=== PATIENT | male | born 2000 | race Hispanic/Latino ===

== ENCOUNTER 2024-06-13 15:21 | Day surgery (SDC) | payer SELFPAY ==
[2024-06-13] MEDS ORDERED: MORPHINE 4 MG/ML SYR ONE (16:01)
[2024-06-13] MEDS ORDERED: KETOROLAC 30 MG/ML INJ ONE (16:01)
[2024-06-13] MEDS ORDERED: NA CHLORIDE 0.9% 1,000 ML ONE (16:01)
[2024-06-13] MEDS ORDERED: ONDANSETRON 4 MG/2 ML VIAL ONE (16:01)
[2024-06-13] MEDS ORDERED: CEFAZOLIN SODIUM 2 GM/VIAL ONE (16:02)
[2024-06-13] MEDS ORDERED: NA CHLORIDE 0.9% 100 ML ONE (16:02)
[2024-06-13 16:23] LABS: Absolute Basophils 0.1 K/uL (0-0.5); Absolute Eosinophils 0.4 K/uL (0-0.5); Absolute Lymphocytes (CBC) 1.5 K/uL (0.7-4.9); Absolute Monocytes 1.1 K/uL (0.1-1.3); Absolute Neutrophil 7.9 K/uL (1.8-8.0); Basophils % 0.9 % (0-1.3); Eosinophils % 3.5 % (0-4.4); Hematocrit 43.1 % (39.6-49.0); Hemoglobin 14.7 g/dL (13.6-17.9); MCH 30.6 pg (27.0-35.0); Monocytes % 9.8 % (3.3-12.3); Neutrophils % 71.8 % (41.7-73.7); Nucleated Red Blood Cells % 0.1 % (0-0); Platelets 290 thou/uL (152-406); RBC Red Blood Cell Count 4.79 M/uL (4.33-5.43); Red Cell Distribution Width 13.1 % (12.1-15.2)
--- NOTE | 2024-06-13 16:37 | RAD REPORT ---
Exam:Foot Left 3 View CLINICAL HISTORY: Left foot pain FINDINGS: No fracture or dislocation seen Laceration soft tissue adjacent to the first metatarsal head Bony density adjacent to the base of the first distal phalanx probably an ununited ossification mary morrison
[2024-06-13 16:40] LABS: Albumin/Globulin Ratio 1.1 (1.1-1.8); Anion Gap 7.2 mEq/L (5.0-15.0); Bilirubin Total 0.6 mg/dL (0.2-1.0); Globulin 3.6 g/dL (2.3-3.5); Potassium 4.2 mEq/L (3.5-5.1); Protein, Total 7.6 g/dL (6.4-8.2)
--- NOTE | 2024-06-13 16:58 | ER ---
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 Ebola Screen: No symptoms or risks identified at this time. Complicating Factors: There are no complicating factors for this patient. Initial Sepsis Screen: Does the patient meet any 2 criteria? No. Patient's initial sepsis screen is negative. Does the patient have a suspected source of infection? No. Patient's initial sepsis screen is negative. Risk Assessment: Do you want to hurt yourself or someone else? Patient reports no desire to harm self or others. Onset of symptoms was June 13, 2024 at 15:00. 15:40 Method Of Arrival: Wheelchair bp 15:40 Acuity: MARZENA 3 bp Triage Assessment: 15:41 General: Appears in no apparent distress. uncomfortable, Behavior is cooperative, bp appropriate for age, anxious. Pain: Complains of pain in left foot. EENT: No deficits noted. Neuro: No deficits noted. Cardiovascular: No deficits noted. Respiratory: No deficits noted. GI: No signs and/or symptoms were reported involving the gastrointestinal system. : No signs and/or symptoms were reported regarding the genitourinary system. Derm: No deficits noted. Musculoskeletal: No deficits noted. Injury Description: Laceration sustained to left first toe is jagged, 0.5 to 2.5 cm long, bleeding moderately. Historical: - Allergies: 15:41 No Known Drug Allergies; bp - Home Meds: 15:41 None [Active]; bp - PMHx: 15:41 None; bp - Immunization history:: Adult Immunizations up to date, Last tetanus immunization: < 5 years ago. - Infectious Disease History:: Denies. - Social history:: Smoking status: Patient denies any tobacco usage or history of. Screenin:39 [facility] ED Fall Risk Assessment (Adult) History of falling in the last 3 months, ph including since admission No falls in past 3 months (0 pts) Confusion or Disorientation No (0 pts) Intoxicated or Sedated No (0 pts) Impaired Gait Yes (1 pt) Mobility Assist Device Used No (0 pt) Altered Elimination No (0 pt) Score/Fall Risk Level 0 - 2 = Low Risk Oriented to surroundings, Maintained a safe environment, Hourly rounding (assess needs \T\ fall precautionary measures) done. Abuse screen: Denies threats or abuse. Denies injuries from another. Nutritional screening: No deficits noted. Tuberculosis screening: No symptoms or risk factors identified. Assessment: 16:40 General: Appears in no apparent distress. well groomed, Behavior is calm, cooperative. ph Pain: Complains of pain in right first toe. Neuro: Level of Consciousness is awake, alert, obeys commands, Oriented to person, place, time, situation. Cardiovascular: Capillary refill < 3 seconds in bilateral fingers. Derm: Skin is pink, warm \T\ dry. Musculoskeletal: Circulation, motion, and sensation intact. Range of motion: intact in all extremities. Injury Description: Laceration sustained to right first toe. 17:36 Reassessment: Patient appears in no apparent distress at this time. Patient and/or ph family updated on plan of care and expected duration. Pain level reassessed. Patient is alert, oriented x 3, equal unlabored respirations, skin warm/dry/pink. Pt taken to OR. Vital Signs: 15:40 Weight 77.11 kg; Height 5 ft. 6 in. ; bp 15:40 BP 146 / 92; Pulse 85; Resp 18; Temp 97; Pulse Ox 100% on R/A; ph 16:45 BP 131 / 79; Pulse 75; Resp 18; Pulse Ox 100% on R/A; ph 15:40 Body Mass Index 27.44 (77.11 kg, 167.64 cm) bp ED Course: 15:23 Patient arrived in ED. ra3 15:41 Triage completed. bp 15:41 Arm band placed on. bp 15:49 Rome Garcia MD is Attending Physician. rehan 16:00 Bel Kirk RN is Primary Nurse. ph 16:10 Missed attempt(s): 20 gauge in right antecubital area. Bleeding controlled, band aid ph applied, catheter tip intact. 16:15 Initial lab(s) drawn, by me, sent to lab. Inserted saline lock: 22 gauge in left ph antecubital area, using aseptic technique. Blood collected. Flushed with 10 mL NS. 16:29 Foot Left 3 View XRAY In Process Unspecified. EDMS 16:40 Patient has correct armband on for positive identification. Bed in low position. Call ph light in reach. Side rails up X 1. Pulse ox on. NIBP on. Door closed. Noise minimized. Warm blanket given. Verbal reassurance given. 16:42 Wound care: to laceration located on right first toe was irrigated with NS and betadine ph dressed with 4X4s, Kerlix, wet to dry. 16:56 Amilcar Martinez MD is Hospitalizing Provider. [facility] 17:38 No provider procedures requiring assistance completed. Patient admitted, IV remains in ph place. Administered Medications: 16:30 Drug: NS 0.9% IV 1000 ml IV at 1000 ml once; to be given as a bolus over 60 minutes ph Route: IV; Rate: 1000 ml; Site: left antecubital; 17:37 Follow up: Response: No adverse reaction; IV Status: Completed infusion ph 16:30 Drug: morphine IVP or IV 4 mg IVP once over 4 mins Route: IVP; Infused Over: 4 mins; ph Site: left antecubital; 17:38 Follow up: Response: No adverse reaction; Pain is decreased ph 16:30 Drug: Ondansetron IVP 4 mg IVP once; over 2 minutes Route: IVP; Site: left antecubital; ph 17:38 Follow up: Response: No adverse reaction ph 16:30 Drug: Ketorolac IVP 30 mg IVP once Route: IVP; Site: left antecubital; ph 17:38 Follow up: Response: No adverse reaction; Pain is decreased ph 16:36 Drug: ceFAZolin IVPB 2 grams IVPB once over 30 mins; (mix in 100 mL NS) Route: IVPB; ph Infused Over: 30 mins; Site: left antecubital; 17:06 Follow up: Response: No adverse reaction; IV Status: Completed infusion ph 17:25 Drug: Boostrix Tdap IM 0.5 ml IM once; as a single dose Route: IM; Site: left deltoid; ph 17:37 Follow up: Response: No adverse reaction ph Medication: 17:38 Vaccine Information Statement (VIS) provided today. Questions and/or concerns ph addressed. VIS edition date: January 2021. Outcome: 16:57 Decision to Hospitalize by Provider. rehan 17:38 Admitted to OR accompanied by nurse, family with patient, via stretcher, with chart, ph 17:38 Condition: good 17:38 Instructed on the need for admit, 17:39 Patient left the ED. ph Signatures: Dispatcher [employer] EDMS Rome Garcia MD MD cha Hall, Patricia, RN RN Clifford Garnett, LANCE RN Ashley Villareal ra3
--- NOTE | 2024-06-13 16:58 | EDPHYS ---
Physician Documentation [facility] Name: Chris Mar Jr Age: 23 yrs Sex: Male : 2000 Arrival Date: 06/13/2024 Time: 15:21 Bed 19 Private MD: ED Physician Rome Garcia HPI: 06/13 16:53 This 23 yrs old Male presents to ER via Wheelchair with complaints of rehan Laceration To Foot. 16:53 The patient has a laceration related to: doing yard work, CHAINSAW. The laceration(s) rehan is(are) located on the instep of left foot. Onset: The symptoms/episode began/occurred just prior to arrival. Associated signs and symptoms: The patient has no apparent associated signs or symptoms. The patient has not experienced similar symptoms in the past. Historical: - Allergies: 15:41 No Known Drug Allergies; bp - Home Meds: 15:41 None [Active]; bp - PMHx: 15:41 None; bp - Immunization history:: Adult Immunizations up to date, Last tetanus immunization: < 5 years ago. - Infectious Disease History:: Denies. - Social history:: Smoking status: Patient denies any tobacco usage or history of. ROS: 16:53 Constitutional: Negative for fever, chills, and weight loss, Eyes: Negative for injury, rehan pain, redness, and discharge, ENT: Negative for injury, pain, and discharge, Neck: Negative for injury, pain, and swelling, Cardiovascular: Negative for chest pain, palpitations, and edema, Respiratory: Negative for shortness of breath, cough, wheezing, and pleuritic chest pain, Abdomen/GI: Negative for abdominal pain, nausea, vomiting, diarrhea, and constipation, Back: Negative for injury and pain, : Negative for injury, bleeding, discharge, and swelling, Neuro: Negative for headache, weakness, numbness, tingling, and seizure, Psych: Negative for depression, anxiety, suicide ideation, homicidal ideation, and hallucinations, Allergy/Immunology: Negative for hives, rash, and allergies, Endocrine: Negative for neck swelling, polydipsia, polyuria, polyphagia, and marked weight changes, Hematologic/Lymphatic: Negative for swollen nodes, abnormal bleeding, and unusual bruising, 16:53 MS/extremity: Positive for decreased range of motion, laceration, pain, of the left foot, Exam: 16:53 Constitutional: This is a well developed, well nourished patient who is awake, alert, rehan and in no acute distress. Head/Face: Normocephalic, atraumatic. Eyes: Pupils equal round and reactive to light, extra-ocular motions intact. Lids and lashes normal. Conjunctiva and sclera are non-icteric and not injected. Cornea within normal limits. Periorbital areas with no swelling, redness, or edema. ENT: Nares patent. No nasal discharge, no septal abnormalities noted. Tympanic membranes are normal and external auditory canals are clear. Oropharynx with no redness, swelling, or masses, exudates, or evidence of obstruction, uvula midline. Mucous membranes moist. Neck: Trachea midline, no thyromegaly or masses palpated, and no cervical lymphadenopathy. Supple, full range of motion without nuchal rigidity, or vertebral point tenderness. No Meningismus. Chest/axilla: Normal chest wall appearance and motion. Nontender with no deformity. No lesions are appreciated. Cardiovascular: Regular rate and rhythm with a normal S1 and S2. No gallops, murmurs, or rubs. Normal PMI, no JVD. No pulse deficits. Respiratory: Lungs have equal breath sounds bilaterally, clear to auscultation and percussion. No rales, rhonchi or wheezes noted. No increased work of breathing, no retractions or nasal flaring. Abdomen/GI: Soft, non-tender, with normal bowel sounds. No distension or tympany. No guarding or rebound. No evidence of tenderness throughout. Back: No spinal tenderness. No costovertebral tenderness. Full range of motion. Neuro: Awake and alert, GCS 15, oriented to person, place, time, and situation. Cranial nerves II-XII grossly intact. Motor strength 5/5 in all extremities. Sensory grossly intact. Cerebellar exam normal. Normal gait. Psych: Awake, alert, with orientation to person, place and time. Behavior, mood, and affect are within normal limits. 16:53 Musculoskeletal/extremity: ROM: limited active range of motion due to pain, limited passive range of motion due to pain, Circulation is intact in all extremities. Sensation intact. Compartment Syndrome exam of affected extremity: is normal. no numbness, no tingling, no sensation deficit, no palor, no weak pulses, severe pain, Tendon exam: specific tendon testing normal through active and passive range of motion Vital Signs: 15:40 Weight 77.11 kg; Height 5 ft. 6 in. ; bp 15:40 BP 146 / 92; Pulse 85; Resp 18; Temp 97; Pulse Ox 100% on R/A; ph 16:45 BP 131 / 79; Pulse 75; Resp 18; Pulse Ox 100% on R/A; ph 15:40 Body Mass Index 27.44 (77.11 kg, 167.64 cm) bp MDM: 15:49 Medical Screening Exam initiated rehan 16:54 Differential diagnosis: tendon injury, vascular injury, fracture, foreign body, rehan penetrating trauma, cellulitis. Data reviewed: vital signs, nurses notes, lab test result(s), radiologic studies, plain films. Consideration of Admission/Observation Escalation of care including admission/observation considered. I considered the following discharge prescriptions or medication management in the emergency department Medications were administered in the Emergency Department. See MAR. Independent interpretation of the following test(s) in the Emergency Department X-Ray: My interpretation is LEFT FOOT. Test considered but Not performed: CT: NO CT. Care significantly affected by the following chronic conditions: NONE. Counseling: I had a detailed discussion with the patient and/or guardian regarding the historical points, exam findings, and any diagnostic results supporting the discharge/admit diagnosis, lab results, radiology results, the need for further work-up and treatment in the hospital. 06/13 15:59 Order name: CBC with Diff; Complete Time: 16:[address] [facility] 06/13 15:59 Order name: Comprehensive Metabolic Panel [facility] 06/13 15:59 Order name: Foot Left 3 View XRAY [facility] 06/13 15:59 Order name: NPO; Complete Time: 16:[address] [facility] 06/13 16:52 Order name: Wound Care; Complete Time: 17:[address] [facility] Administered Medications: 16:30 Drug: NS 0.9% IV 1000 ml IV at 1000 ml once; to be given as a bolus over 60 minutes ph Route: IV; Rate: 1000 ml; Site: left antecubital; 17:37 Follow up: Response: No adverse reaction; IV Status: Completed infusion ph 16:30 Drug: morphine IVP or IV 4 mg IVP once over 4 mins Route: IVP; Infused Over: 4 mins; ph Site: left antecubital; 17:38 Follow up: Response: No adverse reaction; Pain is decreased ph 16:30 Drug: Ondansetron IVP 4 mg IVP once; over 2 minutes Route: IVP; Site: left antecubital; ph 17:38 Follow up: Response: No adverse reaction ph 16:30 Drug: Ketorolac IVP 30 mg IVP once Route: IVP; Site: left antecubital; ph 17:38 Follow up: Response: No adverse reaction; Pain is decreased ph 16:36 Drug: ceFAZolin IVPB 2 grams IVPB once over 30 mins; (mix in 100 mL NS) Route: IVPB; ph Infused Over: 30 mins; Site: left antecubital; 17:06 Follow up: Response: No adverse reaction; IV Status: Completed infusion ph 17:25 Drug: Boostrix Tdap IM 0.5 ml IM once; as a single dose Route: IM; Site: left deltoid; ph 17:37 Follow up: Response: No adverse reaction ph Disposition Summary: 06/13/24 16:57 Hospitalization Ordered Notes: Hospitalization Status: Observation rehan Provider: Amilcar Martinez cha Location: DAY SURGERY OTHER rehan Condition: Stable rehan Problem: new rehan Symptoms: are unchanged rehan Bed/Room Type: Standard [facility] Room Assignment: rehan Diagnosis - Laceration without foreign body, left foot - COMPLEX/CONTAMINATED rehan Forms: - Medication Reconciliation Form rehan - SBAR form rehan - Leadership Thank You Letter [facility] Signatures: Dispatcher [employer] EDRome Gaming MD MD cha Hall, Patricia, RN RN Clifford Garnett RN RN bp Corrections: (The following items were deleted from the chart) 15:59 15:59 Foot Left 3 View+RAD.RAD.BRZ ordered. EDMS EDMS 15:59 15:59 CBC+H.LAB.BRZ ordered. EDMS EDMS 15:59 15:59 COMPREHENSIVE METABOLIC PANEL+C.LAB.BRZ ordered. EDMS EDMS
[2024-06-13] MEDS ORDERED: TDAP (DIPHTH,PERTUSS(ACELL),TET VAC) 0.5 ML VIAL IMVAC ONE (17:15)
[2024-06-13] MEDS ORDERED: LIDOCAINE 1% MPF 5 ML VIAL ONE (17:32)
[2024-06-13] MEDS ORDERED: FENTANYL CITR 100 MCG/2 ML ONE (17:33)
[2024-06-13] MEDS ORDERED: MIDAZOLAM HCL 2 MG/2 ML INJ ONE (17:33)
[2024-06-13] MEDS ORDERED: EPHEDRINE SULF 50 MG/ML VIAL ONE (17:33)
[2024-06-13] MEDS ORDERED: propofoL 200 MG/20 ML VIAL IV ONE ×3 (17:34→18:17)
[2024-06-13] MEDS ORDERED: SUCCINYLCHOLINE 20 MG/ML (10 ML) IV ONE (17:35)
[2024-06-13 17:43] VITALS: O2SAT 100
[2024-06-13] MEDS: Ringers Lactate 1,000 ML IV ONE (17:45)
[2024-06-13] MEDS: LIDOCAINE HCL/EPINEPHRINE 20 ML MDV ONE (18:14)
--- NOTE | 2024-06-13 18:35 | P.OP ---
Preoperative diagnosis: LEFT foot traumatic injury Postoperative diagnosis: LEFT foot traumatic injury Primary procedure: Washout and closure of LEFT foot traumatic injury Anesthesia: MAC + Local Estimated blood loss: <2cc Specimen: none Findings: ~ 3cm avulsion to LEFT Metarsalophalangeal joint Complications: None Transferred to: Recovery Room Condition: Good
[2024-06-13] MEDS ORDERED: ACETAMINOPHEN 500 MG TAB PO ONE (18:44)
--- NOTE | 2024-06-13 19:41 | HP ---
Date of Admission: 06/13/2024 Brief History Of Present Illness: The patient is a 23-year-old male who presents to the ER shortly after having an injury at which he was cutting branches with a chainsaw, which ultimately kic ked back and hit his foot, cut through his boot which he was wearing at that time and ultimately lace rated into the medial aspect of his left foot along the great toe at the metatarsal head. He came in immediately after. I spoke with the ER physician, who stated there were some debris in the area con sistent with branch bits and organic material in the wound and I am requested to see the patient mauri rding this issue. Past Medical History: Denies. Past Surgical History: Denies. Allergies: NO KNOWN DRUG ALLERGIES. Medications: None. Social History: He denies smoking. Drinks beer. Denies any recreational drug use. Works as a [employer]. Review of Systems: Ten-point review of systems other than HPI, denies. Physical Examination: General: At the time of my examination, he is awake, alert, and oriented. Psychiatric: Appropriate and conversive. HEENT: Normocephalic. Sclerae anicteric. Mucous membranes moist. Oropharynx clear. Neck: Supple without JVD. Chest: Normal to expansion and excursion. Cardiovascular: Regular rate and rhythm. Pulmonary: Clear to auscultation bilaterally. Abdomen: Soft. Extremities: Focused examination of the left lower extremity shows approximately 2.5 to 3 cm lacerat ion type injury along the metatarsal head of the left foot at the first metatarsal head at the juncti on with the hallux. There is a jagged appearance of this injury with ground-up and missing tissue wi thin the substance of this difficult to complete examination secondary to the pain in the ER. As suc h, there are no obvious gross deformities other than the tissue missing in this vicinity. He does orellana ve decreased range of motion and mobility with his toe, at this point, he states secondary to pain. There is some minimal swelling to the area. Laboratory Data: Revealed a white blood cell count of 11.0, hemoglobin is 14.7, hematocrit 43.1, shilo telet count was 290, neutrophils 81%. Sodium 141, potassium 4.2, chloride 113, carbon dioxide 25, BU N 12, creatinine 0.8, glucose is 107, calcium 8.9. He had an x-ray performed which was officially re ad as laceration soft tissue adjacent to the first metatarsal head bone density adjacent to the first base of the distal phalanx probably an ununited ossification center. Assessment And Plan: This is a 23-year-old male who comes in with a chainsaw injury to the left foot as described above. 1.IV fluid hydration. 2.Antibiotic coverage. 3.I have explained the risks, benefits, and alternatives of washout, debridement, and closure of thi s injury, and indicated procedures of which the risks include, but not limited to, bleeding, infectio n, damage to surrounding tissues, need for further operative procedures, injury to nerves, limb loss, loss of the toe, I should say, and toe dysmobility, and difficulty walking can be a side effect, jack uld there have been any long-term sequelae from the initial injury as well and need for the wound car e. Patient displayed understanding of the above stated plan and agreed to proceed as indicated. ENEIDA/LILLIAM Voice ID: [id number]
--- NOTE | 2024-06-13 19:53 | OP ---
Date of Procedure: 06/13/2024 Surgeon: Amilcar Martinez MD, Preoperative Diagnosis: Left foot traumatic injury. Postoperative Diagnosis: Left foot traumatic injury. Procedure: Washout and closure of left foot traumatic injury. Anesthesia: MAC plus local 1% lidocaine with epinephrine. Estimated Blood Loss: 2 cc. Specimen: None. Findings: Approximately 3 cm jagged avulsion injury to the left metatarsophalangeal joint on the lat eral aspect with no immediate complications. Disposition: Patient transferred to recovery room in good condition at the end of the procedure. Procedure In Detail: After informed consent was obtained, patient was brought to the operating room, prepped and draped in the usual sterile fashion. After adequate anesthesia was achieved, I began by irrigating out the wound in question on the left metatarsophalangeal joint at the hallux until all d ebrided tissue was removed. There was a small to moderate amount of nonviable tissue which was ische michel. I debrided this all sharply with tenotomy scissors down to good viable tissue. The joint capsu le was violated and there was exposure of the metatarsal head, at this area. The area was cleansed t horoughly and there was a tissue loss in this area. I therefore after cleansing the area appropriate ly, achieved hemostasis with minimal electrocautery. I then reapproximated the deep tissues using 3- 0 Vicryl sutures in a running fashion with good approximation of tissues. I then closed the skin wit h interrupted 3-0 nylon sutures and a sterile dressing placed over top. The patient tolerated the pr ocedure without incident or complication and transferred to PACU in good condition. All counts were correct at the end of the ca se. TK/MODL Voice ID: [id number] Report ID: [id number]
[2024-06-13 20:09] VITALS: BP 123/72; TEMP 97.1
== END 2024-06-13 20:01 | disposition home or self-care (01) ==
LOC: ER 15:21 → DS 16:59 → 2ND 16:59 → DS 20:01 → ER 20:01
PROVIDERS: ATTEND Surgery
PROC: 0JQR0ZZ Repair Left Foot Subcutaneous Tissue and Fascia, Open Approach (ICD-10-PCS; principal; 2024-06-13 17:30)
DX: S91.312A Laceration without foreign body, left foot, initial encounter (principal); W29.3XXA Contact with powered garden and outdoor hand tools and machinery, initial encounter; Y93.89 Activity, other specified; Y92.9 Unspecified place or not applicable; Y99.9 Unspecified external cause status; Z23 Encounter for immunization
CPT/HCPCS: 36415; 80053; 85025; 88304; 96361; 96365; 96372; 96375; 99285; J2003; J2250; J2405; J2704; J3010; J7030; J7120